=== PATIENT | female | born 1945 ===

== ENCOUNTER 2019-07-12 11:02 | Inpatient (IN) | payer OTHER ==
[~2019-07-12] VITALS: Ht 134.6 cm; Wt 40.8 kg
--- NOTE | 2019-07-12 11:09 | NUR ---
ESPOSO REFIERE QUE PACIENTE LLEVA MAS DE UN MES QUEJANDOSE DE DOLOR EN CADERA IZQ.
[2019-07-12] MEDS ORDERED: OMEPRAZOLE20 M1 PO (11:14)
[2019-07-12] MEDS ORDERED: RESTORIL7.5 MG PO (11:14)
[2019-07-12] MEDS ORDERED: SINGULAIR10 MG PO (11:14)
[2019-07-12] MEDS ORDERED: ZOLOFT25 MG PO (11:15)
[2019-07-12] MEDS ORDERED: REMERON15 MG PO (11:15)
[2019-07-12] MEDS ORDERED: ARICEPT10 MG PO (11:15)
[2019-07-12] MEDS ORDERED: NAMENDA5 MG PO (11:16)
--- NOTE | 2019-07-12 12:44 | NUR ---
PACIENTE EVALUADA POR DR ERMA SALCIDOIEN ORDENA VITO X.EN ESPERA DE LECTURA PARA RE EVALUACION MEDICA.
--- NOTE | 2019-07-12 15:31 | NUR ---
SE RECIBE DE TURNO ANTERIOR. PACIENTE FEMENINA. ALERTA. ORIENTADA EN PERSONA. ACOMPANADA DE FAMILIAR. SE OBSERVA CON BUEN PATRON RESPIRATORIO. PIEL TIBIA AL TACTO. CANALIZACION PATENTE, CHRISTIANO DE EDEMA Y/O ENROJECIMIENTO CON SALINE LOCK COLOCADO. PACIENTE EN ESPERA DE SER EVALUADA POR DR Compa NELSON.
[2019-07-22] MEDS ORDERED: INTEGRA PLUS C1 EACH PO (08:25)
[2019-07-22] MEDS ORDERED: XARELTO10 MG PO (08:25)
[2019-07-22] MEDS ORDERED: LEVAQUIN750 MG PO (08:25)
== END 2019-07-22 12:35 | DRG 470 ==
LOC: ER 11:02 → SURH 20:18
PROVIDERS: ADMIT Orthopaedic Surgery Sports Medicine
PROC: 0SRS01Z Replacement of Left Hip Joint, Femoral Surface with Metal Synthetic Substitute, Open Approach (ICD-10-PCS; principal; 2019-07-13 13:30)
PROC: 30233N1 Transfusion of Nonautologous Red Blood Cells into Peripheral Vein, Percutaneous Approach (ICD-10-PCS; 2019-07-21)
DX: S72.092A Other fracture of head and neck of left femur, initial encounter for closed fracture (principal); F02.81 Dementia in other diseases classified elsewhere, unspecified severity, with behavioral disturbance; T81.49XA Infection following a procedure, other surgical site, initial encounter; N39.0 Urinary tract infection, site not specified; D62 Acute posthemorrhagic anemia; G30.8 Other Alzheimer's disease; J30.2 Other seasonal allergic rhinitis; D72.828 Other elevated white blood cell count; F32.9 Major depressive disorder, single episode, unspecified; B96.89 Other specified bacterial agents as the cause of diseases classified elsewhere